=== PATIENT | male | born 1970 ===

== ENCOUNTER 2017-01-03 20:15 | Emergency (ER) | payer BC ==
[2017-01-03 20:20] VITALS: BP 123/76; PULSE 81; RESP 18; TEMP 98.5; O2SAT 99
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
== END 2017-01-03 21:56 | disposition home or self-care (01) ==
LOC: H.ER 20:15
DX: S20.219A Contusion of unspecified front wall of thorax, initial encounter (principal); Y04.0XXA Assault by unarmed brawl or fight, initial encounter; Y92.89 Other specified places as the place of occurrence of the external cause